=== PATIENT | female | born 1955 | race Caucasian/White ===

== ENCOUNTER → 2021-07-15 | Outpatient (CLI) | payer MEDICARE ==
--- NOTE | 2021-07-16 09:22 | RAD ---
XR FOOT_RIGHT 3 VIEWS History: Reason: RIGHT FOOT PAIN. / Spl. Instructions: / History: Technique: 3 views right foot. Comparison: None. Findings: Normal alignment. No acute fracture. Mild first MTP DJD. Plantar calcaneal spur. Impression: 1. Mild first MTP DJD. Electronically signed by: Kehinde Farnsworth DO (07/16/2021 9:20 AM) [id number]
== END ==
LOC: RAD 13:05
PROVIDERS: ATTEND Family Medicine
DX: M19.071 Primary osteoarthritis, right ankle and foot (principal); M77.31 Calcaneal spur, right foot
CPT/HCPCS: 73630